=== PATIENT | female | born 1950 | race Caucasian/White ===

== ENCOUNTER 2016-05-16 17:31 | Emergency (ER) | payer OTHER ==
[2016-05-16 19:48] VITALS: BP 157/83
--- NOTE | 2016-05-16 20:48 | UC ---
Throat Pain/Nasal Silas HPI - HPI Summary HPI Summary: 66 female presents complaining of ear pressure of her right ear that seems to be going into her left ear as well that started around 11:00am this morning. Denies any discharge. Admits to some hearing loss in right ear. States she has history of ear infection and wanted to make sure it wasn't the start of one. Patient says she has been suffering from cold-like symptoms for the past 3 days that include nasal congestion/discharge and productive intermittent cough. Admits to mild headache. Denies sinus pain or pressure. Denies difficulty breathing, SOB, chest pain or nausea/vomiting. She has been drinking plenty of fluids. She tried taking Dayquil around 5pm this evening with some congestion relief. She has not tried anything else. States congestion is worse at night and her throat because dry from having to sleep with her mouth open. - History of Current Complaint Chief Complaint: UCEar Stated Complaint: EAR ACHE Time Seen by Provider: 05/16/16 20:00 Hx Obtained From: Patient ?: No Onset/Duration: Sudden Onset Severity: Moderate Pain Intensity: 6 Pain Scale Used: 0-10 Numeric Cough: Sputum Appears - "phlegm" Associated Signs & Symptoms: Positive: Nasal Discharge. Negative: Dysphagia, Wheezing, Sinus Discomfort, Fever, Vomiting - Allergies/Home Medications Allergies/Adverse Reactions: Allergies Allergy/AdvReac Type Severity Reaction Status Date / Time No Known Allergies Allergy Verified 05/16/16 19:48 PMH/Surg Hx/FS Hx/Imm Hx Cardiovascular History Of: Reports: Hypertension Cancer History Of: Denies: Breast Cancer - Surgical History Surgical History: Yes Surgery Procedure, Year, and Place: X2. RIGHT KIDNEY OBSTRUCTION REMOVED 2000 - Family History Known Family History: Positive: Cardiac Disease - Social History Alcohol Use: Occasionally Substance Use Type: None Smoking Status (MU): Never Smoked Tobacco Have You Smoked in the Last Year: No Review of Systems Constitutional: Fatigue Skin: Negative Eyes: Negative ENT: Ear Ache, Nasal Discharge Respiratory: Cough Cardiovascular: Negative Gastrointestinal: Negative Genitourinary: Negative, Dysuria Neurovascular: Negative Musculoskeletal: Negative Neurological: Headache Psychological: Negative All Other Systems Reviewed And Are Negative: Yes Physical Exam Triage Information Reviewed: Yes Appearance: No Pain Distress, Well-Nourished, Ill-Appearing Vital Signs: Initial Vital Signs Temp 96.5 F 05/16/16 19:45 Pulse 76 05/16/16 19:45 Resp 18 05/16/16 19:45 BP 157/83 05/16/16 19:45 Pulse Ox 100 05/16/16 19:45 elevated BP, patient did take her medication today Vital Signs Reviewed: Yes Eyes: Positive: Conjunctiva Clear ENT: Positive: Pharynx normal, Nasal congestion - edema of both nares, erythema , Nasal drainage, TM dull - right TM, serous effusion seen behind TM, no sign of eryethma, discharge or exudate in EAC or on TM of either ear., Other: - some hearing loss in right ear, muffled sounding but able to hear. Negative: Tonsillar swelling, Tonsillar exudate Dental: Negative: Percussion Tenderness @, Cervical Lymphadenopathy Neck: Positive: Supple, Nontender, No Lymphadenopathy Respiratory: Positive: Chest non-tender, Lungs clear, Normal breath sounds, No respiratory distress Cardiovascular: Positive: RRR, No Murmur, Pulses Normal, Brisk Capillary Refill Abdominal Exam: Normal Bowel Sounds: Positive: Present Musculoskeletal Exam: Normal Neurological Exam: Normal Psychological Exam: Normal Skin Exam: Normal Throat Pain/Nasal Course/Dx - Course Course Of Treatment: patient was told to use symptomatic measures and decongestants to help with symptoms (saline nasal spray, claritin and sudafed). also prescribed flonase for nasal congestion and edema. if worsen, develop fever /chills, increased pain or not improving told to return or make appointment. - Differential Dx/Diagnosis Differential Diagnosis/HQI/PQRI: Otitis Media, Sinusitis, URI Provider Diagnoses: rhinosinusitis, eustachian tube dysfunction b/l Discharge - Discharge Plan Condition: Stable Disposition: HOME Prescriptions: Fluticasone NASAL SPRAY 50MCG* [Flonase NASAL SPRAY 50MCG*] 2 spray BOTH NARES DAILY #1 btl Patient Education Materials: Rhinosinusitis (ED) Referrals: Sylvester Luong MD [Primary Care Provider] - Additional Instructions: Use prescribed nasal spray daily to help with congestion. Also try and use saline nasal spray OTC to help with opening and moisturizing the airways. Sudafed and Claritin OTC decongestants to relieve pressure in eustachian tubes and also help with congestion. Get plenty of rest and drink lots of fluids. Hot showers and/or humidified air may also help your symptoms. If symptoms worsen or do not improve over the next 3-5 days please return or make an appointment with your primary care provider.
== END 2016-05-16 21:00 | disposition home or self-care (01) ==
LOC: UCEAST 17:31
DX: J32.9 Chronic sinusitis, unspecified (principal); H69.93 Unspecified Eustachian tube disorder, bilateral
CPT/HCPCS: 99212; G0463